=== PATIENT | male | born 1940 | race Caucasian/White ===

== ENCOUNTER → 2019-04-17 | Outpatient (CLI) | payer OTHER | LOC: CAT 13:53 | DX: N28.1 Cyst of kidney, acquired (principal); K44.9 Diaphragmatic hernia without obstruction or gangrene; K38.1 Appendicular concretions; K57.30 Diverticulosis of large intestine without perforation or abscess without bleeding; K42.9 Umbilical hernia without obstruction or gangrene; I25.10 Atherosclerotic heart disease of native coronary artery without angina pectoris ==

== ENCOUNTER 2019-12-31 12:27 | Emergency (ER) | payer OTHER ==
[~2019-12-31] VITALS: Ht 180.3 cm; Wt 90.7 kg
[2019-12-31 14:45] VITALS: BP 105/62
== END 2019-12-31 14:38 | disposition home or self-care (01) ==
LOC: ER 12:27
DX: S00.01XA Abrasion of scalp, initial encounter (principal); G61.81 Chronic inflammatory demyelinating polyneuritis; Z79.82 Long term (current) use of aspirin; Z98.890 Other specified postprocedural states; W18.30XA Fall on same level, unspecified, initial encounter; Y93.89 Activity, other specified; Y92.238 Other place in hospital as the place of occurrence of the external cause; Y99.8 Other external cause status

== ENCOUNTER → 2020-03-18 | Outpatient (CLI) | payer OTHER | LOC: SJCVCIMAG 12:41 | PROVIDERS: ATTEND Family Medicine | DX: I10 Essential (primary) hypertension (principal); R60.9 Edema, unspecified; Z79.82 Long term (current) use of aspirin; Z79.899 Other long term (current) drug therapy ==